=== PATIENT | male | born 1980 | race African-American/Black ===

== ENCOUNTER 2020-02-20 12:31 | Emergency (ER) | payer SELFPAY ==
[~2020-02-20] VITALS: Ht 175.3 cm; Wt 99.8 kg
--- NOTE | 2020-02-20 12:49 | NUR ---
patient came in to the er c/o requesting medical screening. 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 On room air, breathing evenly and unlabored. Ambulatory with steady gait. Kept comfortable, will continue to monitor accordingly.
--- NOTE | 2020-02-20 13:02 | NUR ---
urine collected and sent to lab
[2020-02-20 13:05] VITALS: BP 167/100
--- NOTE | 2020-02-20 13:09 | NUR ---
Patient discharged to home in stable condition. Written and verbal after care instructions given. Patient verbalizes understanding of instruction.
== END 2020-02-20 13:08 | disposition home or self-care (01) ==
LOC: ER 12:31
DX: A64 Unspecified sexually transmitted disease (principal); I10 Essential (primary) hypertension
CPT/HCPCS: 87491; 87591